=== PATIENT | female | born 1950 | race Caucasian/White ===

== ENCOUNTER 2025-04-02 14:21 | Emergency (ER) | payer MEDICARE, OTHER ==
[~2025-04-02] VITALS: Ht 154.9 cm; Wt 59.0 kg
[2025-04-02] MEDS ORDERED: LEVO50TA8 PO (15:03)
[2025-04-02] MEDS ORDERED: HYDR-3980 PO (15:03)
[2025-04-02] MEDS ORDERED: MAGN100C4 PO (15:03)
[2025-04-02] MEDS ORDERED: TRAM50TA2 PO (15:03)
[2025-04-02] MEDS ORDERED: AMLO2.5T4 PO (15:03)
[2025-04-02] MEDS ORDERED: OXYC30TA2 PO (15:03)
[2025-04-02 15:33] LABS: *BILIRUBIN,URIN NEGATIVE (NEGATIVE); *BLOOD, URINE NEGATIVE (NEGATIVE); *CLARITY,URINE CLEAR (CLEAR); *COLOR,URINE LIGHT YELLOW (YELLOW); *KETONES,URINE NEGATIVE (NEGATIVE); *PROTEIN,URINE TRACE (NEGATIVE); *UROBILINOGEN,URINE 0.2 E.U./dl (NORMAL); LEUKOCYTE ESTERASE ,URINE NEGATIVE (NEGATIVE); NITRITE, URINE NEGATIVE (NEGATIVE); UGLUCOSE NEGATIVE (NEGATIVE)
[2025-04-02 15:53] LABS: BACTERIA,URINE NONE SEEN /HPF (NONE SEEN); SQUAMOUS EPITHELIAL CELL,UR NONE SEEN /HPF (NONE SEEN); WBC,URINE 0-3 /HPF (0-3)
[2025-04-02 15:54] LABS: RBC,URINE 0-3 /HPF (0-3)
[2025-04-02] MEDS ORDERED: HYDROCODONE/APAP 10-325 MG TABLET ONE (16:06)
[2025-04-02] MEDS: HYDROCODONE/APAP 10-325 MG TABLET PO ONE (16:08)
[2025-04-02] MEDS ORDERED: HYDR-3972 PO (17:19)
[2025-04-02] MEDS ORDERED: ACETAMINOPHEN 500 MG TABLET ONE (17:40)
[2025-04-02] MEDS: ACETAMINOPHEN 500 MG TABLET PO ONE (17:48)
[2025-04-02 19:25] VITALS: BP 161/86; TEMP 97.6; O2SAT 96
== END 2025-04-02 19:27 ==
LOC: ER 14:22
DX: G89.29 Other chronic pain (principal); M54.9 Dorsalgia, unspecified; M54.2 Cervicalgia; E03.9 Hypothyroidism, unspecified; E78.5 Hyperlipidemia, unspecified; I10 Essential (primary) hypertension
CPT/HCPCS: 87086; A4606; A4663; A9150

== ENCOUNTER 2025-05-01 19:50 | Emergency (ER) | payer MEDICARE, OTHER ==
[~2025-05-01] VITALS: Ht 154.9 cm; Wt 57.2 kg
[~2025-05-01 19:50] MED LIST: AMLO2.5T4 PO; HYDR-3972 PO; HYDR-3980 PO; LEVO50TA8 PO; MAGN100C4 PO; OXYC30TA2 PO; TRAM50TA2 PO
[2025-05-01 20:24] LABS: BASOPHILS # (AUTO) 0.1 K/UL (0.0-0.2); EOSINOPHILS # (AUTO) 0.1 K/uL (0.0-0.7); EOSINOPHILS % (AUTO) 0.8 % (0.0-7.0); HEMATOCRIT 37.4 % (31.2-41.9); HEMOGLOBIN 12.4 g/dL (10.9-14.3); LYMPHOCYTES # (AUTO) 3.9 K/uL (0.8-4.8); LYMPHOCYTES % (AUTO) 38.6 % (20.5-51.5); MEAN CORPUSCULAR HEMOGLOBIN 30.6 uug (24.7-32.8); MEAN CORPUSCULAR HGB CONC 33 g/dL (32.3-35.6); MEAN CORPUSCULAR VOLUME 92.4 fL (75.5-95.3); MONOCYTES # (AUTO) 0.6 K/uL (0.1-1.30); NEUTROPHILS # (AUTO) 5.4 K/uL (1.8-8.9); NEUTROPHILS % (AUTO) 53.6 % (38.5-71.5); PLATELET COUNT (AUTO) 434 K/uL (179-408); RED BLOOD CELL COUNT(AUTO) 4.05 MIL/uL (3.63-4.92); RED CELL DISTRIBUTION WIDTH 16.6 % (12.3-17.7); WHITE BLOOD COUNT (AUTO) 10.1 K/uL (3.8-11.8)
[2025-05-01 20:27] LABS: DIFFERENTIAL COMMENT 1
[2025-05-01 20:28] LABS: *BILIRUBIN,URIN NEGATIVE (NEGATIVE); *BLOOD, URINE NEGATIVE (NEGATIVE); *CLARITY,URINE CLEAR (CLEAR); *COLOR,URINE YELLOW (YELLOW); *KETONES,URINE NEGATIVE (NEGATIVE); *PROTEIN,URINE NEGATIVE (NEGATIVE); *UROBILINOGEN,URINE 0.2 E.U./dl (NORMAL); LEUKOCYTE ESTERASE ,URINE NEGATIVE (NEGATIVE); NITRITE, URINE NEGATIVE (NEGATIVE); UGLUCOSE NEGATIVE (NEGATIVE)
[2025-05-01 20:31] LABS: CALCIUM 8.8 mg/dL (8.5-10.1); CARBON DIOXIDE 27 mmol/L (21-32); CHLORIDE 104 mmol/L (98-107); CREATININE 0.8 mg/dL (0.6-1.3); GLUCOSE 107 mg/dL (74-106); POTASSIUM 3.6 mmol/L (3.5-5.1); SODIUM SERUM 139 mmol/L (136-145); UREA NITROGEN, BLOOD 13 mg/dL (7-18)
[2025-05-01 20:37] LABS: ALANINE AMINOTRANSFERASE 17 U/L (14-59); ALBUMIN 3.7 g/dL (3.4-5.0); ALKALINE PHOSPHATASE 104 U/L (50-136); ASPARTATE AMINOTRANSFERASE 19 U/L (15-37); BILIRUBIN,DIRECT 0.1 mg/dL (0.0-0.2); BILIRUBIN,TOTAL 0.3 mg/dL (0.2-1.0); LIPASE 57 U/L (16-77); TOTAL PROTEIN, SERUM 6.7 g/dL (6.4-8.2)
[2025-05-01] MEDS ORDERED: ONDANSETRON 4 MG/2 ML VIAL ONE (20:44)
[2025-05-01] MEDS ORDERED: KETOROLAC TROMETHAMINE 15 MG INJ ONE (20:44)
[2025-05-01] MEDS ORDERED: HYDROMORPHONE 1 MG/1 ML DISP.SYRIN ONE ×3 (20:45→23:49)
[2025-05-01] MEDS ORDERED: LORA-258 PO (20:53)
[2025-05-01] MEDS ORDERED: LIDO30AD10 TOP (20:53)
[2025-05-01] MEDS: KETOROLAC TROMETHAMINE 15 MG INJ IVP ONE (21:00)
[2025-05-01] MEDS: HYDROMORPHONE 1 MG/1 ML DISP.SYRIN IV ONE ×3 (21:00→23:51)
[2025-05-01] MEDS: ONDANSETRON 4 MG/2 ML VIAL IV ONE (21:00)
[2025-05-01] MEDS ORDERED: DOCU-286 PO (21:24)
[2025-05-01] MEDS ORDERED: VALA500T34 PO (21:24)
[2025-05-01] MEDS ORDERED: SERT50TA PO (21:24)
[2025-05-01] MEDS ORDERED: FLUT9.9S (21:24)
[2025-05-01] MEDS ORDERED: TRAZ-257 PO (21:24)
[2025-05-01] MEDS ORDERED: FOLI1TAB94 PO (21:24)
[2025-05-01] MEDS ORDERED: COLE625T9 PO (21:24)
[2025-05-01] MEDS ORDERED: FAMO10TA41 PO (21:24)
[2025-05-01] MEDS ORDERED: NYST15CR38 TOP (21:24)
[2025-05-01] MEDS ORDERED: CETI-467 PO (21:24)
[2025-05-01] MEDS ORDERED: ALEN70TA3 PO (21:24)
[2025-05-01] MEDS ORDERED: BUSP15TA3 PO (21:24)
[2025-05-01] MEDS ORDERED: LEVO75CA5 PO (21:24)
[2025-05-01] MEDS ORDERED: SUCR1TAB31 PO (21:24)
[2025-05-01] MEDS ORDERED: HYDR-3980 PO (21:25)
[2025-05-01] MEDS ORDERED: ONDA4TAB11 PO (21:25)
[2025-05-01] MEDS ORDERED: hydrALAZINE HCL 20 MG/1 ML VIAL ONE (21:38)
[2025-05-01] MEDS: hydrALAZINE HCL 20 MG/1 ML VIAL IV ONE (21:43)
[2025-05-02 01:17] VITALS: BP 173/76; TEMP 97.8; O2SAT 99
== END 2025-05-01 22:00 | disposition home or self-care (01) ==
LOC: ER 19:50
DX: G89.29 Other chronic pain (principal); M54.9 Dorsalgia, unspecified; R10.9 Unspecified abdominal pain; K21.9 Gastro-esophageal reflux disease without esophagitis; Z87.442 Personal history of urinary calculi; Z88.7 Allergy status to serum and vaccine
CPT/HCPCS: 99285; 74176; 96374; 96375; 80076; 80048; 81003; 83690; 85025; 36415; 96376; J1885; J0360; J2405; J1171 ×3; A4606; A4663

== ENCOUNTER 2025-06-06 19:33 | Emergency (ER) | payer MEDICARE, OTHER ==
[~2025-06-06] VITALS: Ht 157.5 cm; Wt 57.2 kg
[~2025-06-06 19:33] MED LIST changes: +ALEN70TA3 PO; +BUSP15TA3 PO; +CETI-467 PO; +COLE625T9 PO; +DOCU-286 PO; +FAMO10TA41 PO; +FLUT9.9S; +FOLI1TAB94 PO; +LEVO75CA5 PO; +LIDO30AD10 TOP; +LORA-258 PO; +NYST15CR38 TOP; +ONDA4TAB11 PO; +SERT50TA PO; +SUCR1TAB31 PO; +TRAZ-257 PO; +VALA500T34 PO
[2025-06-06 20:18] LABS: *BILIRUBIN,URIN NEGATIVE (NEGATIVE); *CLARITY,URINE CLEAR (CLEAR); *COLOR,URINE YELLOW (YELLOW); *KETONES,URINE 1+ (NEGATIVE); *PROTEIN,URINE 1+ (NEGATIVE); *UROBILINOGEN,URINE 0.2 E.U./dl (NORMAL); LEUKOCYTE ESTERASE ,URINE NEGATIVE (NEGATIVE); NITRITE, URINE NEGATIVE (NEGATIVE); UGLUCOSE NEGATIVE (NEGATIVE)
[2025-06-06 20:19] LABS: *BLOOD, URINE NEGATIVE (NEGATIVE)
[2025-06-06 20:32] LABS: PLATELET COUNT (AUTO) 348 K/uL (179-408); RED BLOOD CELL COUNT(AUTO) 4.38 MIL/uL (3.63-4.92); RED CELL DISTRIBUTION WIDTH 16.0 % (12.3-17.7); WHITE BLOOD COUNT (AUTO) 10.4 K/uL (3.8-11.8)
[2025-06-06] MEDS ORDERED: METOCLOPRAMIDE HCL 10 MG/2 ML VIAL ONE (20:35)
[2025-06-06] MEDS ORDERED: MORPHINE SULFATE 2 MG/1 ML DISP.SYRIN ONE (20:35)
[2025-06-06] MEDS: MORPHINE SULFATE 2 MG/1 ML DISP.SYRIN IV ONE (20:42)
[2025-06-06] MEDS: IV NS 1000 ML 1,000 ML IV ONE (20:42)
[2025-06-06] MEDS: METOCLOPRAMIDE HCL 10 MG/2 ML VIAL IV ONE (20:42)
[2025-06-06 20:46] LABS: ASPARTATE AMINOTRANSFERASE 20 U/L (15-37); CREATININE 1.4 mg/dL (0.6-1.3); SODIUM SERUM 141 mmol/L (136-145); TOTAL PROTEIN, SERUM 7.6 g/dL (6.4-8.2); UREA NITROGEN, BLOOD 15 mg/dL (7-18)
[2025-06-06] MEDS ORDERED: LACT10SO58 PO (22:10)
[2025-06-06] MEDS ORDERED: TRAM50TA2 PO (22:10)
[2025-06-06 23:04] VITALS: BP 140/75; TEMP 98; O2SAT 98
== END 2025-06-06 23:05 | disposition home or self-care (01) ==
LOC: ER 19:39
DX: R10.9 Unspecified abdominal pain (principal); R11.0 Nausea; E03.9 Hypothyroidism, unspecified; E78.5 Hyperlipidemia, unspecified; G89.29 Other chronic pain; M81.0 Age-related osteoporosis without current pathological fracture; F32.A Depression, unspecified; F41.9 Anxiety disorder, unspecified; K21.9 Gastro-esophageal reflux disease without esophagitis; Z79.624 Long term (current) use of inhibitors of nucleotide synthesis; Z79.899 Other long term (current) drug therapy; Z88.7 Allergy status to serum and vaccine
CPT/HCPCS: 99285; 74176; 96374; 96361; 96375; 80053; 81001; 85025; 36415; J2765; J2270; J7040; A4606; A4663